=== PATIENT | male | born 1975 | race Caucasian/White ===

== ENCOUNTER 2020-05-18 15:47 | Inpatient (IN) | payer MEDICARE, OTHER ==
[~2020-05-18] VITALS: Ht 175.3 cm; Wt 72.6 kg
[2020-05-19 01:30] LABS: HEMOGLOBIN 7.4 gm/dl (14.0-17.5); RED BLOOD COUNT 2.79 M/UL (4.20-5.50); WHITE BLOOD COUNT 5.4 K/UL (4.5-11.0)
[2020-05-19] MEDS ORDERED: LIPITOR TAB 2020 MG PO (05:27)
[2020-05-19] MEDS ORDERED: VITAMIN D3250 MCG PO (05:29)
[2020-05-19] MEDS ORDERED: KLONOPIN0.5 MG PO (05:29)
[2020-05-19] MEDS ORDERED: DIVALPROEX SOD250 MG PO (05:30)
[2020-05-19] MEDS ORDERED: FENOFIBRATE145 MG PO (05:32)
[2020-05-19] MEDS ORDERED: LORATADINE10 MG PO (05:32)
[2020-05-19] MEDS ORDERED: MONTELUKAST SOD10 MG PO (05:32)
[2020-05-19] MEDS ORDERED: QUETIAPINE FUM200 MG PO (05:33)
[2020-05-19] MEDS ORDERED: LACTULOSE20 GM/30 M PO (05:34)
[2020-05-19] MEDS ORDERED: CLONAZEPAM1 MG PO (05:35)
[2020-05-19] MEDS ORDERED: HYDROCHLOROTH12.5 MG PO (05:36)
[2020-05-19] MEDS ORDERED: FLONASE 0.05% N16 GM (05:36)
[2020-05-19] MEDS ORDERED: OMEPRAZOLE20 M1 PO (05:37)
[2020-05-19] MEDS ORDERED: LISINOPRIL10 MG PO (05:37)
[2020-05-19] MEDS ORDERED: VITAMIN C500 M3 PO (05:38)
[2020-05-19] MEDS ORDERED: FEROSUL325 MG PO (05:38)
[2020-05-19] MEDS ORDERED: HYDROCODON-ACE1 EAC5 PO (05:39)
[2020-05-19] MEDS ORDERED: METOPROLOL TART25 MG PO (05:40)
[2020-05-19] MEDS ORDERED: TRAZODONE HCL50 MG PO (05:41)
[2020-05-20 04:02] LABS: HEMOGLOBIN 8.1 gm/dl (14.0-17.5); RED BLOOD COUNT 2.97 M/UL (4.20-5.50); WHITE BLOOD COUNT 5.4 K/UL (4.5-11.0)
[2020-05-20 04:32] LABS: BUN/CREATININE RATIO 31 (0-10)
--- NOTE | 2020-05-21 04:28 | NUR ---
SPOKE WITH LISSET FROM PATIENT'S HOME FACILITY THIS EVENING. SHE ASKED IF WE COULD GET CASE MANAGEMENT ON HIS CASE TO POSSIBLY SET HIM UP WITH A DIFFERENT PHYSICIAN SO THAT HE WILL RECEIVE BETTER CARE. SHE ALSO REQUESTED THAT HE RECEIVE PT/OT WHILE HE IS AT OUR FACILITY. LISSET STATED THAT UP UNTIL 2 MONTHS AGO, PATIENT WAS WALKING ON HIS OWN BUT HIS HEALTH HAS DECLINED DRAMATICALLY SINCE THEN DUE TO THE WOUND ON HIS RIGHT HIP. LISSET ALSO REQUESTED THAT PATIENT RECEIVE WOUND CARE WHILE AT OUR FACILITY IF POSSIBLE. HER PHONE NUMBER IS [phone] AND SHE WOULD LIKE TO BE NOTIFIED OF ANY CHANGE IN PATIENT'S STATUS.
[2020-05-21 05:09] LABS: HEMOGLOBIN 8.1 gm/dl (14.0-17.5); RED BLOOD COUNT 2.94 M/UL (4.20-5.50); WHITE BLOOD COUNT 3.3 K/UL (4.5-11.0)
[2020-05-21 05:29] LABS: BUN/CREATININE RATIO 21 (0-10)
[2020-05-22 05:46] LABS: HEMOGLOBIN 9.3 gm/dl (14.0-17.5)
[2020-05-22 05:50] LABS: RED BLOOD COUNT 3.45 M/UL (4.20-5.50); WHITE BLOOD COUNT 4.9 K/UL (4.5-11.0)
[2020-05-22 06:09] LABS: BUN/CREATININE RATIO 18 (0-10)
[2020-05-23 04:57] LABS: HEMOGLOBIN 8.8 gm/dl (14.0-17.5); RED BLOOD COUNT 3.23 M/UL (4.20-5.50); WHITE BLOOD COUNT 7.8 K/UL (4.5-11.0)
[2020-05-23 05:11] LABS: BUN/CREATININE RATIO 20 (0-10)
--- NOTE | 2020-05-25 14:34 | NUR ---
Spoke with [facility] re: PICC line placement. Not scheduled for d/c today. Will address on Sunday 05/28.
--- NOTE | 2020-05-25 18:18 | NUR ---
SPOKE WITH LISSET @ ALF. UPDATE GIVEN. SPOKE WITH DIMITRY CLANCY, STATE GUARDIAN, EXPLAINED NEED FOR PICC LINE. CONSENT OBTAINED. REQUEST FOR PT TO GO TO [facility] @ [place] DISCUSSED. Maris THACKER RN CM NOTIFIED AND REFERRAL SENT
[2020-05-28 03:39] LABS: HEMOGLOBIN 9.9 gm/dl (14.0-17.5); RED BLOOD COUNT 3.53 M/UL (4.20-5.50); WHITE BLOOD COUNT 8.2 K/UL (4.5-11.0)
[2020-05-28 03:45] LABS: BUN/CREATININE RATIO 31 (0-10)
[2020-05-28] MEDS ORDERED: HYDROCODON-ACE1 EAC5 PO (09:31)
[2020-05-28] MEDS ORDERED: TRAZODONE HCL50 MG PO (09:31)
[2020-05-28] MEDS ORDERED: QUETIAPINE FUM200 MG PO (09:31)
[2020-05-28] MEDS ORDERED: CLONAZEPAM1 MG PO (09:31)
[2020-05-29 09:44] LABS: HEMOGLOBIN 9.5 gm/dl (14.0-17.5); RED BLOOD COUNT 3.39 M/UL (4.20-5.50)
[2020-05-29 09:47] LABS: WHITE BLOOD COUNT 6.1 K/UL (4.5-11.0)
[2020-05-29 10:01] LABS: BUN/CREATININE RATIO 33 (0-10)
== END 2020-06-01 00:10 | DRG 871 ==
LOC: PROG CARE 05-19 00:49 → M/S 05-19 00:49 → MED SURG 4 05-19 00:49 → PROG CARE 05-19 03:03 → MED SURG 4 05-21 15:53
PROVIDERS: Internal Medicine; Internal Medicine Infectious Disease; Internal Medicine Nephrology; Physician Assistant; ADMIT Internal Medicine
PROC: 02HV33Z Insertion of Infusion Device into Superior Vena Cava, Percutaneous Approach (ICD-10-PCS; principal; 2020-05-28)
PROC: B548ZZA Ultrasonography of Superior Vena Cava, Guidance (ICD-10-PCS; 2020-05-28)
DX: A41.89 Other specified sepsis (principal); L89.213 Pressure ulcer of right hip, stage 3; R65.21 Severe sepsis with septic shock; J69.0 Pneumonitis due to inhalation of food and vomit; G93.41 Metabolic encephalopathy; J18.9 Pneumonia, unspecified organism; N17.9 Acute kidney failure, unspecified; M86.9 Osteomyelitis, unspecified; E87.2 Acidosis; G81.90 Hemiplegia, unspecified affecting unspecified side; Z20.822 Contact with and (suspected) exposure to COVID-19; I95.9 Hypotension, unspecified; G40.909 Epilepsy, unspecified, not intractable, without status epilepticus; I10 Essential (primary) hypertension; E78.5 Hyperlipidemia, unspecified; E87.5 Hyperkalemia; F60.3 Borderline personality disorder; F79 Unspecified intellectual disabilities; Z79.899 Other long term (current) drug therapy; L08.89 Other specified local infections of the skin and subcutaneous tissue; B96.1 Klebsiella pneumoniae [K. pneumoniae] as the cause of diseases classified elsewhere; R00.0 Tachycardia, unspecified
CPT/HCPCS: 36415; 71045; 73502; 78315; 80048; 80053; 80202; 82550; 82553; 83605; 83735; 84484; 85025; 85027; 86140; 87040; 87070; 87077; 87186; 87205; 93005; A9503; J1335; J1650; J2543; J3370; J7030; J7070; U0002